=== PATIENT | female | born 1975 | race Caucasian/White ===

== ENCOUNTER 2020-09-01 13:31 | Inpatient (IN) ==
[~2020-09-01 13:31] MED LIST: *HR* FentaNYL (PF) 100 MCG/2 ML VIAL IVP PRN; *HR* HYDROmorphone PF 0.5 MG/0.5 ML SYRINGE IVP PRN; Ondansetron 4 MG/2 ML VIAL IVP PRN
[2020-09-01] MEDS ORDERED: CeFAZolin Syr 2,000MG/20 ML 2,000 MG/20 ML SYRINGE IVPB ONE (13:52)
[2020-09-01] MEDS ORDERED: Ringers Solution, Lactated 1,000 ML IVC SCH (14:00)
[2020-09-01] MEDS ORDERED: *HR* Propofol 200 MG/20 ML VIAL IVP ONE (15:10)
[2020-09-01] MEDS ORDERED: *HR* FentaNYL (PF) 100 MCG/2 ML VIAL ONE (15:10)
[2020-09-01] MEDS ORDERED: *HR* Midazolam HCl 2 MG/2 ML VIAL ONE (15:10)
[2020-09-01] MEDS ORDERED: *HR* Rocuronium Bromide 50 MG/5 ML VIAL ONE (15:11)
[2020-09-01] MEDS ORDERED: Ondansetron 4 MG/2 ML VIAL ONE (15:11)
[2020-09-01] MEDS ORDERED: Lidocaine -MPF 2% 2 ML VIAL ONE (15:11)
[2020-09-01] MEDS ORDERED: Lidocaine HCL 4 ML Topical Solution (Laryng-O-Jet Kit Sterile Pak) TP ONE (15:11)
[2020-09-01] MEDS ORDERED: CeFAZolin Syringe 2,000MG/20 ML SYR IVPB ONE (15:30)
[2020-09-01] MEDS ORDERED: Morphine Sulfate/PF 5mg/10mL Vial ONE (15:52)
[2020-09-01] MEDS ORDERED: *HR* Belladonna Alkaloids/Opium 30 MG RECTAL SUPPOSITORY RC ONE (15:56)
[2020-09-01] MEDS ORDERED: *HR* Midazolam HCl 5 MG/5 ML VIAL IVP ONE (16:15)
[2020-09-01] MEDS ORDERED: Ketorolac 30 MG/ML VIAL ONE (18:11)
[2020-09-01] MEDS ORDERED: Naloxone 0.4 MG/ML INJ IVP PRN (20:00)
[2020-09-01] MEDS ORDERED: *HR* OxyCODONE/APAP 5/325 TABLET PO PRN (20:00)
[2020-09-01] MEDS ORDERED: *HR* HYDROcodone/Acet 5/325 mg TABLET PO PRN (20:00)
[2020-09-01] MEDS ORDERED: Sennosides 8.6 MG TABLET PO PRN (20:00)
[2020-09-01] MEDS ORDERED: Ondansetron 4 MG/2 ML VIAL IVP PRN (20:00)
[2020-09-01] MEDS: Baclofen 10 MG TABLET PO SCH (20:41)
[2020-09-01] MEDS: Ibuprofen 400 MG TABLET PO SCH (23:36)
[2020-09-02] MEDS: Ibuprofen 400 MG TABLET PO SCH (05:44)
[2020-09-02 06:40] LABS: Basophils % 0.1 %; Hematocrit 35.4 % (35.3-44.9); Hemoglobin 11.4 g/dL (11.5-15.4); Immature Granulocytes % 0.4 % (0-4); Lymphocytes # 1.1 K/mcL (0.6-4.6); Lymphocytes % 9.4 %; Mean Corpuscular HGB Conc 32.2 g/dL (31.6-35.5); Mean Corpuscular Volume 90.1 fL (83.0-100.0); Mean Platelet Volume 9.8 fL (9.4-12.4); Monocytes # 0.7 K/mcL (0.0-1.3); Monocytes % 6.1 %; Neutrophils # 10.1 K/mcL (1.6-8.9); Platelet Count 323 K/mcL (140-400); Red Blood Count 3.93 M/mcL (3.82-4.97); Red Cell Distribution Width 14.5 % (11.5-14.5)
[2020-09-02 06:59] LABS: eGFR For African Americans > 60 (> 60); eGFR For Non-African Americans > 60 (> 60)
[2020-09-02 07:43] VITALS: BP 118/71; PULSE 89; TEMP 98.3; O2SAT 95
[2020-09-02] MEDS: Baclofen 10 MG TABLET PO SCH (08:13)
== END 2020-09-02 10:06 | disposition home or self-care (01) | DRG 743 ==
LOC: SAMDAY 13:31 → 1NENUOBS 19:52
PROVIDERS: ADMIT Obstetrics & Gynecology; ATTEND Obstetrics & Gynecology